=== PATIENT | male | born 1955 | race African-American/Black ===

== ENCOUNTER → 2020-10-30 | Outpatient (CLI) | payer OTHER ==
[2020-10-30 12:38] LABS: ABSOLUTE NEUTROPHILS 3.4 thou/uL (1.4-8.2); BASOPHILS 0.5 % (0.0-2.0); EOSINOPHILS 2.7 % (0.0-3.0); HEMOGLOBIN 15.3 gm/dL (14.0-18.0); MCH 30.9 pg (26.0-34.0); MCHC 34.1 g/dL (28.0-37.0); MCV 90.5 fL (80.0-100.0); PLATELET COUNT 224 thou/uL (150-400); POLYS 56.8 % (36.0-66.0); RBC 4.97 mil/uL (4.50-6.00); RDW 12.8 % (10.5-14.5)
== END ==
LOC: RAD 11:37
PROVIDERS: ATTEND Internal Medicine Pulmonary Disease
DX: G47.33 Obstructive sleep apnea (adult) (pediatric) (principal); E66.09 Other obesity due to excess calories; Z99.89 Dependence on other enabling machines and devices; Z68.36 Body mass index [BMI] 36.0-36.9, adult

== ENCOUNTER → 2021-01-04 | Outpatient (CLI) | payer OTHER ==
--- NOTE | 2021-01-18 21:22 | SLE ---
[facility] [place] [address] POLYSOMNOGRAPHY STUDY Name: BAUTISTA BOYD Room #: REG [facility]#: [id number] Admission: 01/04/21 Attend Phys: Brice Azul MD Discharge: Date of : 57 Report #: [id number] THIS REPORT FOR: cc: Micki Fernandez MD, Nora P. MD Khan, Aman U. MD ~ cc: Brice Azul MD DATE OF SERVICE: 01/04/2021 SLEEP STUDY REFERRING PHYSICIAN: Dr. Brice Azul. The patient is [id number] who weighs 250 pounds with a BMI of 31.2. The patient's Towson score was 6. The patient had a previous sleep study in 12/2015. At that time, the patient had severe sleep apnea at an AHI of 64 per hour. There were 71 central apneas on that study. The patient then had a recent home sleep study performed in 11/2020. At that time, the patient's AHI was 66 per hour and was all obstructive. The patient was referred for in-lab titration study. This was performed at [facility] sleep lab on 01/04/2021. During the night study, the patient spent 462 minutes in bed and slept for 223 minutes with a poor sleep efficiency of 48%. Sleep latency was 10 minutes with a REM latency of 127 minutes. Sleep architecture showed increased stage I and stage II sleep, absent slow wave and reduced REM sleep, which was 8% of total sleep time. EKG monitoring revealed an average heart rate of 67 beats per minute. PVCs were seen throughout the night. No sustained arrhythmias observed. No significant PLM seen. The patient was started on CPAP at a pressure of 7 cm water and titrated up to 15 cm of water. At the final pressure, the patient had only 7% sleep while the patient slept for 74 minutes. The patient's AHI was 43 per hour. At the lower pressures of 11 cm of water, the patient's AHI was 18 per hour from 40 minutes of sleep and at a pressure of 13 cm of water, the patient's AHI was 43 per hour from 144 minutes of sleep, including 26 central apneas. Optimum CPAP pressure was not achieved due to reduced sleep efficiency as well as central apneas. I would recommend the patient should be placed on an auto BiPAP in the ST mode. The setting should be a maximum IPAP of 22 cm water with a minimum EPAP of 16 cm of water with pressure support of 4 and a backup rate of 10. The patient should have a download data after that. IMPRESSION: [place] [address] POLYSOMNOGRAPHY STUDY Name: BAUTISTA BOYD Room #: REG [facility].#: [id number] Admission: 01/04/21 Attend Phys: Brice Azul MD Discharge: Date of : 57 Report #: [id number] 1. Severe sleep apnea diagnosed previously. 2. No clinically significant PLMs. 3. Abnormal EKG with premature ventricular contractions throughout. 4. Significantly reduced sleep efficiency of 48%, resulting from sleep maintenance insomnia. RECOMMENDATIONS: 1. Optimum CPAP pressure was not achieved due to central apneas. I would recommend the patient should be placed on BiPAP in the ST mode. The settings should be maximum IPAP pressure of 22, minimum EPAP pressure of 16 with pressure support of 4 and a backup rate of 10. 2. The patient should have a download data in next 30 days to assess the efficacy of current auto BiPAP. 3. If patient's insomnia is chronic, then it should be further evaluated and treated, if it persists despite effective use of BiPAP. 4. Weight loss to the ideal body weight is recommended. 5. Avoid [employer] depressants. 6. Cautioned regarding driving until symptoms of sleep apnea resolve with above recommendations. <ELECTRONICALLY SIGNED> By: Cholo Nur MD 01/18/21 [id number] Cholo Nur MD /nt
== END ==
LOC: SLEEPLAB 14:34
PROVIDERS: ATTEND Internal Medicine Pulmonary Disease
DX: G47.33 Obstructive sleep apnea (adult) (pediatric) (principal); Z20.822 Contact with and (suspected) exposure to COVID-19

== ENCOUNTER → 2021-05-18 | Outpatient (CLI) | payer OTHER | LOC: RAD 12:28 | PROVIDERS: ATTEND Nurse Practitioner | DX: A15.9 Respiratory tuberculosis unspecified (principal) ==